=== PATIENT | female | born 1980 | race Caucasian/White ===

== ENCOUNTER 2017-06-30 08:07 | Emergency (ER) | payer BC, SELFPAY ==
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
--- OUTSIDE RECORDS SUMMARY | 2017-07-02 02:17 | XMS | Continuity of Care Document ---
:1980 Author Organization [facility] Care Team Providers Name Role Phone Juve Lindquist Primary Care Physician Unavailable Insurance Providers Payer Name Policy Number Subscriber Name Relationship [facility] [id number] BEENA URIARTE Chief Complaint and Reason for Visit Reason for Visit SENT BY DR FOR STEROID SHOT Problems Active Medical Problems Problem Onset Date Recorded Date Status Right foot infection Unknown 01/24/16 Active Pain in right foot Unknown 01/24/16 Active Antibiotic-induced allergic rash Unknown 02/01/16 Active Medications Current Home Medications Medication Dose Units Route Directions Days/Qty Instructions Start Date METHYLPREDNISOLONE 4 MG PO GIVE 21 Day 1: 2 tabs 02/01/16 (METHYLPREDNISOLONE DIRECTED BY by mouth in AM, DOSE PACK) 4 MG TAB PHYSICIAN 1 tab at noon, 1 tab with supper and 2tablets at bedtime.Day 2: 1 tab in AM, 1 tab at noon, 1 tab with supper and 2 tabsat bedtimeDay 3: 1 tab in AM, 1 tab at noon, 1 tabwith supper and 1 tab atbedtimeDay 4: 1 tab in AM, 1 tab at noon and 1 tab at bedtimeDay 5: 1 tablet in AM and 1 tablet at bedtimeDay 6: 1 tablet in AM SULFAMETHOXAZOLE 1 TAB PO TWICE A DAY 10 Days 01/24/16 W/TRIMETHOPRI (SMZ-TMP (0900; 2100) DS) 800 MG/160 MG TAB TRAMADOL HCL (TRAMADOL 50 MG PO EVERY SIX 30 01/24/16 HCL 50 MG TAB) 50 MG HOURS TAB NEEDED PRN PAIN Social History Problem Response Recorded Date Recreational drugs? N 02/01/16 Alcohol? N 02/01/16 Query Response Start Date Stop Date Smoking Status: Never Smoker Hospital Discharge Instructions No hospital discharge instructions. Plan of Care Discharge Date 02/01/16 Disposition HOME/SELF CARE Condition at Discharge STABLE Forms Provided Discharge Form Work Release Prescriptions See Medications Section Referrals Juve Lindquist - Additional Instructions/Education STOP CEFDINIL. CONTINUE BACTRIM. TAKE STEROID PRESCRIBED. TAKE PEPCID DIRECTED ON BOX. TAKE BENADRYL DIRECTED ON BOX. YOUR URINE CULTURE WILL BE AVAILABLE IN 48 HOURS AND WILL SHOW IF YOU HAVE A UTI. SEE YOUR PHYSICIAN EARLY NEXT WEEK. Functional Status No functional status results. Allergies, Adverse Reactions, Alerts No known allergies. Immunizations No Known History of Immunizations. Vital Signs Vital Reading Collection Date/Time Result Blood Pressure 02/01/16 10:30pm 115/74 Patient Temperature 02/01/16 10:30pm 98.4 Temperature Source 02/01/16 5:35pm Oral Pulse Rate 02/01/16 10:30pm 98 Bedside Pulse Oximetry 02/01/16 10:30pm 98 Height 02/01/16 5:35pm 175.26 cm Height 02/01/16 5:35pm 5 ft 9.00 in Weight 02/01/16 5:35pm 126.552 kg Weight 02/01/16 5:35pm 279 lb 0.00 oz Body Mass Index 02/01/16 5:35pm 41.2 Results Laboratory Results Test Name Result Units Flags Reference Collection Result Comments Date/Time Date/Time Urine Color YELLOW YELLOW 02/01/16 02/01/16 8:10pm 8:29pm Urine CLEAR CLEAR 02/01/16 02/01/16 Appearance 8:10pm 8:29pm Urine Glucose NEGATIVE mg/dL NEGATIVE 02/01/16 02/01/16 8:10pm 8:29pm Urine Bilirubin SMALL A NEGATIVE 02/01/16 02/01/16 8:10pm 8:29pm Urine Ketones TRACE A NEGATIVE 02/01/16 02/01/16 8:10pm 8:29pm Urine Specific >=1.030 1.002-1.030 02/01/16 02/01/16 [place] 8:10pm 8:29pm Urine Blood LARGE A NEGATIVE 02/01/16 02/01/16 8:10pm 8:29pm Urine pH 5.5 4.5-8.0 02/01/16 02/01/16 8:10pm 8:29pm Urine Protein 100 mg/dL A NEGATIVE 02/01/16 02/01/16 8:10pm 8:29pm Urine 1.0 E.U./dL 0.2 02/01/16 02/01/16 Urobilinogen 8:10pm 8:29pm Urine Nitrite NEGATIVE NEGATIVE 02/01/16 02/01/16 8:10pm 8:29pm Urine Leukocyte TRACE A NEGATIVE 02/01/16 02/01/16 Esterase 8:10pm 8:29pm Urine YES NO 02/01/16 02/01/16 Microscopic 8:10pm 8:29pm Indicated Urine RBC TNTC /hpf A 0-2 02/01/16 02/01/16 8:10pm 8:49pm Urine WBC 3-5 /hpf A 0-2 02/01/16 02/01/16 8:10pm 8:49pm Urine 6-14 /hpf A 0-2 02/01/16 02/01/16 Epithelial 8:10pm 8:49pm Cells Urine Bacteria 1+ /hpf A NEG 02/01/16 02/01/16 "Urine 8:10pm 8:49pm Culture test was reflexed and added to this specimen" Monoscreen NEGATIVE NEGATIVE 02/01/16 02/01/16 8:10pm 9:07pm Procedures No Known History of Procedures. Encounters Encounter Location Arrival/Admit Date Discharge/Depart Date Attending Provider Departed [place] 02/01/16 5:34pm 02/01/16 10:30pm Brian Mayers [facility] Departed [place] 01/24/16 8:29pm 01/24/16 10:14pm TalibBrian salamanca [facility] Encounter Diagnosis Antibiotic-induced allergic rash
--- OUTSIDE RECORDS SUMMARY | 2017-07-02 02:17 | XMS | Continuity of Care Document ---
:1980 Author Organization [facility] Care Team Providers Name Role Phone NOLOCAL, PRIMARY Primary Care Physician Unavailable Insurance Providers Payer Name Policy Number Subscriber Name Relationship [facility] [id number] BEENA URIARTE Chief Complaint and Reason for Visit Reason for Visit FOOT TATTOO INFECTION Problems Active Medical Problems Problem Onset Date Recorded Date Status Right foot infection Unknown 01/24/16 Active Pain in right foot Unknown 01/24/16 Active Medications Current Home Medications Medication Dose Units Route Directions Days/Qty Instructions Start Date SULFAMETHOXAZOLE 1 TAB PO TWICE A DAY 10 Days 01/24/16 W/TRIMETHOPRI (0900; 2100) (SMZ-TMP DS) 800 MG/160 MG TAB TRAMADOL HCL 50 MG PO EVERY SIX HOURS 30 01/24/16 (TRAMADOL HCL 50 MG NEEDED PRN TAB) 50 MG TAB PAIN Social History No social history. Hospital Discharge Instructions No hospital discharge instructions. Plan of Care Discharge Date 01/24/16 Disposition HOME/SELF CARE Condition at Discharge STABLE Instructions/Education Provided DI for Cellulitis -- Adult DI for Foot Pain Forms Provided Discharge Form Prescriptions See Medications Section Referrals NOLOCAL,PRIMARY CARE DOC - Additional Instructions/Education General DC Instructions Clean wound twice a day and apply antibiotic ointment to affected area twice a day until healed. Take all medications as prescribed. Follow up with your Primary Physician as directed in 3 to 4 days, if symptoms not improving or if any new, changing or worsening symptoms. Functional Status No functional status results. Allergies, Adverse Reactions, Alerts No known allergies. Immunizations No Known History of Immunizations. Vital Signs Vital Reading Collection Date/Time Result Blood Pressure 01/24/16 8:42pm 146/89 Patient Temperature 01/24/16 8:42pm 97.9 Pulse Rate 01/24/16 8:42pm 89 Bedside Pulse Oximetry 01/24/16 8:42pm 98 Height 05/19/16 8:42pm 167.64 cm Height 01/24/16 8:42pm 5 ft 6.00 in Weight 01/24/16 8:42pm 127.459 kg Weight 01/24/16 8:42pm 281 lb 0.00 oz Body Mass Index 01/24/16 8:42pm 45.4 Results No known relevant diagnostic tests, laboratory data and/or discharge summary. Procedures No Known History of Procedures. Encounters Encounter Location Arrival/Admit Date Discharge/Depart Date Attending Provider Departed [place] 01/24/16 8:29pm 01/24/16 10:14pm Brian Mayers MD [facility] Encounter Diagnosis Infection of right foot Right foot pain
== END 2017-06-30 09:22 | disposition home or self-care (01) ==
LOC: ERS 08:07
DX: S16.1XXA Strain of muscle, fascia and tendon at neck level, initial encounter (principal); I10 Essential (primary) hypertension; V89.2XXA Person injured in unspecified motor-vehicle accident, traffic, initial encounter
CPT/HCPCS: 72040

== ENCOUNTER 2018-09-08 14:44 | Outpatient (CLI) | payer OTHER | END 2018-09-08 14:45 | disposition home or self-care (01) | LOC: SCSMAMMO 14:44 | PROVIDERS: ATTEND Family Medicine | DX: Z12.31 Encounter for screening mammogram for malignant neoplasm of breast (principal) | CPT/HCPCS: 77067 ==

== ENCOUNTER 2021-10-01 09:51 | Outpatient (CLI) | payer OTHER | END 2021-10-01 09:52 | disposition home or self-care (01) | LOC: BICMAMMO 09:51 | PROVIDERS: ATTEND Family Medicine | DX: Z12.31 Encounter for screening mammogram for malignant neoplasm of breast (principal) | CPT/HCPCS: 77063; 77067 ==